=== PATIENT | female | born 1960 | race Caucasian/White ===

== ENCOUNTER 2021-07-08 09:45 | Emergency (ER) | payer MEDICAID ==
[~2021-07-08] VITALS: Ht 165.1 cm; Wt 87.2 kg
[~2021-07-08 09:45] MED LIST: ALBU8HFA INH; ASPI325T8 PO; ATOR40TA59 PO; CLON2TAB PO; FLUO40CA9 PO; GABA600T7 PO; HYDR-2761 PO; HYDR50CA2 PO; NALT50TA PO; NITR0.4T24 SL; QUET200T4 PO; QUET25TA5 PO; TRAZ-123 PO
--- NOTE | 2021-07-08 11:06 | RAD ---
2 view abdomen dated 07/08/2021. No comparison available. Clinical data indication: Pain. FINDINGS: Flat and upright images submitted. Nondilated gas-filled loops of bowel throughout. No abnormal calci fication. Clips in the right upper quadrant compatible with prior cholecystectomy. No air-fluid level or pneumoperitoneum on the upright view. IMPRESSION: Nonobstructive bowel gas pattern. Electronically signed by: Phil Renae MD (07/08/2021 11:04 AM) [id number]
--- NOTE | 2021-07-08 11:41 | PHYS DOC ---
Past Medical History Additional Past Medical Histor: CHRONIC PAIN,NSTEMI Past Surgical History: Angioplasty Smoking Status: Current Every Day Smoker Additional Information: 0.5 PPD Alcohol Use: None Additional Information: SOBER SINCE MAY 09, 2021. General Adult EDM: Chief Complaint: CONSTIPATION HPI: HPI: Patient is a 60 year old female who presents to the ED today to be evaluated for constipation. Patient states she has not had a bowel movement for 14 days. Denies any nausea, vomiting, reports 8 out of 10 generalized abdominal pain. She states she has tried mag citrate as well as 2 Fleet enemas with no success. Denies any fever. Review of Systems: Review of Systems: Constitutional: Denies fever or chills. [] Eyes: Denies change in visual acuity. [] HENT: Denies nasal congestion or sore throat. [] Respiratory: Denies cough or shortness of breath. [] Cardiovascular: Denies chest pain or edema. [] GI: Reports abdominal pain with constipation, denies nausea, vomiting, bloody stools or diarrhea. [] : Denies dysuria. [] Musculoskeletal: Denies back pain or joint pain. [] Integument: Denies rash. [] Neurologic: Denies headache, focal weakness or sensory changes. [] Psychiatric: Denies depression or anxiety. [] Heart Score: C/O Chest Pain: N/A Risk Factors: Risk Factors: DM, Current or recent (<one month) smoker, HTN, HLP, family his tory of CAD, obesity. Risk Scores: Score 0 - 3: 2.5% MACE over next 6 weeks - Discharge Home Score 4 - 6: 20.3% MACE over next 6 weeks - Admit for Clinical Observation Score 7 - 10: 72.7% MACE over next 6 weeks - Early Invasive Strategies Allergies: Allergies: Allergies Coded Allergies Type Severity Reaction Last Updated Verified No Known Drug Allergies 06/27/21 No Physical Exam: PE: Constitutional: Well developed, well nourished, no acute distress, non-toxic appearance. [] HENT: Normocephalic, atraumatic, bilateral external ears normal, oropharynx moist, no oral exudates, nose normal. [] Eyes: PERRLA, EOMI, conjunctiva normal, no discharge. [] Neck: Normal range of motion, no tenderness, supple, no stridor. [] Cardiovascular:Heart rate regular rhythm, no murmur [] Lungs & Thorax: Bilateral breath sounds clear to auscultation [] Abdomen: Rounded abdomen bowel sounds normal, soft, diffuse tenderness to the abdomen, no masses, no pulsatile masses. [] Skin: Warm, dry, no erythema, no rash. [] Back: No tenderness, no CVA tenderness. [] Extremities: No tenderness, no cyanosis, no clubbing, ROM intact, no edema. [] Neurologic: Alert and oriented X 3, normal motor function, normal sensory function, no focal deficits noted. [] Psychologic: Affect normal, judgement normal, mood normal. [] Current Patient Data: Vital Signs: Vital Signs Date Time Temp Pulse Resp B/P (MAP) Pulse Ox O2 Delivery O2 Flow Rate FiO2 07/08/21 09:49 98.1 78 17 93/54 (97) 94 Room Air 98.1 EKG: EKG: [] Radiology/Procedures: Radiology/Procedures: []PROCEDURE: ABDOMEN SUPINE & UPRIGHT 2 view abdomen dated 07/08/2021. No comparison available. Clinical data indication: Pain. FINDINGS: Flat and upright images submitted. Nondilated gas-filled loops of bowel throughout. No abnormal calcification. Clips in the right upper quadrant compatible with prior cholecystectomy. No air-fluid level or pneumoperitoneum on the upright view. IMPRESSION: Nonobstructive bowel gas pattern. Electronically signed by: Phil Renae MD (07/08/2021 11:04 AM) [id number] DICTATED and SIGNED BY: PHIL RENAE MD DATE: 07/08/21 [id number] PROCEDURE: CT ABDOMEN PELVIS WO CONTRAST Exam: CT abdomen/pelvis without intravenous contrast Indication: Constipation Comparison: None Technique: Helical CT imaging performed of the abdomen and pelvis without the use of intravenous contrast. Sagittal and coronal reformats were obtained. One or more of the following individualized dose reduction techniques were util ized for this examination: 1. Automated exposure control 2. Adjustment of the mA and/or kV according to patient size 3. Use of iterative reconstruction technique. Findings: Inherently limited evaluation without intravenous contrast. Lower chest: Lung bases are clear. The heart is normal in size. Liver: Unremarkable noncontrast appearance of the liver. Gallbladder/Biliary Tree: Gallbladder surgically absent. Bile ducts are normal. Pancreas: There is mild atrophy of the pancreas.. Spleen: Normal. Adrenal Glands: Normal. Kidneys/Ureters/Bladder: Kidneys are normal in size. There is mild right hydronephrosis. No definite obstruction visualized. There is a vascular calcification in the right kidney. No nephrolithiasis. Left kidney and ureter are normal. Bladder is mildly distended. Reproductive Organs: The uterus is is anteverted. There is a 3 cm solid right adnexal mass. 1 cm nodule in the left adnexa adjacent to the uterus and separate from the ovary. Stomach, small bowel, and colon: Stomach is normal. There is no small bowel obstruction. The colon is mildly distended with stool and fluid. Vasculature: Mild calcified atherosclerosis of the aorta. Lymph Nodes: 1 cm nodule or lymph node in the left adnexa. No lymphadenopathy. Peritoneum and retroperitoneum: No free fluid or free air. Bones: No acute osseous abnormality. Mild lumbar degenerative disc disease, greatest at L5-S1. Impression: 1. No small bowel obstruction. 2. 3 cm solid right adnexal mass. There is an additional 1 cm nodule (the p rhonda on the left, separate from the left ovary. Recommend pelvic ultrasound to further evaluate. 3. Mild right hydronephrosis without obstructing calculus visualized. 4. Mild diffuse distention of the colon with stool and fluid. Electronically signed by: Cris Edwards MD (07/08/2021 12:17 PM) [id number] DICTATED and SIGNED BY: CRIS EDWARDS MD DATE: 07/08/21 [id number] 0 PROCEDURE: PELVIS W/TV EXAM: ULTRASOUND PELVIS INDICATION: Reason: right and left adnexal mass / Spl. Instructions: / History: . COMPARISON: None available. TECHNIQUE: Transabdominal and transvaginal sonography was performed. FINDINGS: The uterus measures 4.2 x 3.1 x 1.9 cm. The endometrium measures 0 point cm. There is no focal myometrial abnormality The right ovary measures 3.9 x 2.5 x 2.9 cm. Flow seen to the right ovary. Right ovary appears enlarged and heterogeneous, underlying mass is difficult to differentiate from the remainder of the ovary. Associated calcifications are seen. The left ovary is not seen, likely obscured by overlying bowel gas. There is no free fluid. IMPRESSION: Indeterminate right adnexal mass which can be further assessed by MRI. Electronically signed by: José Luis Valentino MD (07/08/2021 1:43 PM) [facility] DICTATED and SIGNED BY: JOSÉ LUIS VALENTINO MD DATE: 07/08/21 [id number] 0 Course & Med Decision Making: Course & Med Decision Making Pertinent Labs and Imaging studies reviewed. (See chart for details) This is a 60-year-old female patient presenting to the ED today complaining of constipation for 14 days. Abdomen supine and upright x-ray was negative for any acute findings. CT of the abdomen and pelvis was negative for small bowel obstruction. 3 cm solid right adnexal mass. There is an additional 1 cm nodule (the pelvis on the left, separate from the left ovary. Recommend pelvic ultrasound to further evaluate. Mild right hydronephrosis without obstructing calculus visualized. Mild diffuse distention of the colon with stool and fluid. Pelvic ultrasound was done and noted for indeterminate right adnexal mass which can be further assessed by MRI. Recommended patient to follow-up with an THIRD HELPER for this pelvic mass. Educated this patient and on how to manage as well as prevent constipation. [id number] medicines also recommended. Dragon Disclaimer: DragJebbit Disclaimer: This electronic medical record was generated, in whole or in part, using a voice recognition dictation system. Departure Departure Impression: Primary Impression: Constipation Qualified Codes: K59.00 - Constipation, unspecified Additional Impression: Adnexal mass Disposition: HOME / SELF CARE / HOMELESS Condition: STABLE Referrals: NO PCP (PCP) PHIL LANDAVERDE MD Please follow up for mass in your pelvic PROPMARCELLO FRASER MD please follow up for constipation Patient Instructions: Constipation, Adult, Pelvic Mass Additional Instructions: You have a mass in your pelvic region. Please contact the provided THIRD HELPER or your own THIRD HELPER as soon as possible Please take 1 more bottle of magnesium citrate when you get home. Please increase your dietary fiber intake this includes more fruits and vegetables Please increase your water intake Please take warmed up prune juice 1 glass today Please take a stool softener/docusate sodium 1 tablet twice daily Please take MiraLAX 1 cup daily Please perform an enema or suppository once tonight and tomorrow ASHLEY ORDONEZ APRN Jul 08, 2021 11:41
--- NOTE | 2021-07-08 12:19 | RAD ---
Exam: CT abdomen/pelvis without intravenous contrast Indication: Constipation Comparison: None Technique: Helical CT imaging performed of the abdomen and pelvis without the use of intravenous cont rast. Sagittal and coronal reformats were obtained. One or more of the following individualized dose reduction techniques were utilized for this examinat ion: 1. Automated exposure control 2. Adjustment of the mA and/or kV according to patient size 3. Use of iterative reconstruction technique. Findings: Inherently limited evaluation without intravenous contrast. Lower chest: Lung bases are clear. The heart is normal in size. Liver: Unremarkable noncontrast appearance of the liver. Gallbladder/Biliary Tree: Gallbladder surgically absent. Bile ducts are normal. Pancreas: There is mild atrophy of the pancreas.. Spleen: Normal. Adrenal Glands: Normal. Kidneys/Ureters/Bladder: Kidneys are normal in size. There is mild right hydronephrosis. No definite obstruction visualized. There is a vascular calcification in the right kidney. No nephrolithiasis. Le ft kidney and ureter are normal. Bladder is mildly distended. Reproductive Organs: The uterus is is anteverted. There is a 3 cm solid right adnexal mass. 1 cm nodu le in the left adnexa adjacent to the uterus and separate from the ovary. Stomach, small bowel, and colon: Stomach is normal. There is no small bowel obstruction. The colon is mildly distended with stool and fluid. Vasculature: Mild calcified atherosclerosis of the aorta. Lymph Nodes: 1 cm nodule or lymph node in the left adnexa. No lymphadenopathy. Peritoneum and retroperitoneum: No free fluid or free air. Bones: No acute osseous abnormality. Mild lumbar degenerative disc disease, greatest at L5-S1. Impression: 1. No small bowel obstruction. 2. 3 cm solid right adnexal mass. There is an additional 1 cm nodule (the pelvis on the left, separa te from the left ovary. Recommend pelvic ultrasound to further evaluate. 3. Mild right hydronephrosis without obstructing calculus visualized. 4. Mild diffuse distention of the colon with stool and fluid. Electronically signed by: Cris Edwards MD (07/08/2021 12:17 PM) [id number]
--- NOTE | 2021-07-08 13:45 | RAD ---
EXAM: ULTRASOUND PELVIS INDICATION: Reason: right and left adnexal mass / Spl. Instructions: / History: . COMPARISON: None available. TECHNIQUE: Transabdominal and transvaginal sonography was performed. FINDINGS: The uterus measures 4.2 x 3.1 x 1.9 cm. The endometrium measures 0 point cm. There is no focal myome trial abnormality The right ovary measures 3.9 x 2.5 x 2.9 cm. Flow seen to the right ovary. Right ovary appears enlar ged and heterogeneous, underlying mass is difficult to differentiate from the remainder of the ovary. Associated calcifications are seen. The left ovary is not seen, likely obscured by overlying bowel gas. There is no free fluid. IMPRESSION: Indeterminate right adnexal mass which can be further assessed by MRI. Electronically signed by: José Luis Mckenzie MD (07/08/2021 1:43 PM) ANISH
[2021-07-08] MEDS ORDERED: BISACODYL 5 MG TABLET.DR. PO STA (14:19)
[2021-07-08] MEDS ORDERED: ONDANSETRON ODT 4 MG TAB.RAPDIS. PO ONE (14:30)
[2021-07-08] MEDS ORDERED: MAGNESIUM CITRATE 296 ML SOLUTION. PO ONE (14:30)
[2021-07-08 14:44] VITALS: BP 134/67
== END 2021-07-08 14:58 | disposition home or self-care (01) ==
LOC: ER 09:45
DX: K59.00 Constipation, unspecified (principal); G89.29 Other chronic pain; F17.200 Nicotine dependence, unspecified, uncomplicated; Z95.5 Presence of coronary angioplasty implant and graft
CPT/HCPCS: 74021; 74176; 76830; 76856; 99285-25

== ENCOUNTER → 2021-07-09 | Outpatient (CLI) | payer MEDICAID ==
[2021-07-08 14:44] VITALS: BP 134/67
[2021-07-10 02:13] LABS: AFPT MARKER 3.1 ng/mL (0.0-8.3); CA 125 16.3 U/mL (0.0-38.1)
[2021-07-10 13:16] LABS: CEA 2.8 ng/mL (0.0-4.7)
== END ==
LOC: LAB 14:06
PROVIDERS: ATTEND Obstetrics & Gynecology
DX: N94.9 Unspecified condition associated with female genital organs and menstrual cycle (principal)
CPT/HCPCS: 36415; 82105; 82378; 83615; 84702; 86304